=== PATIENT | male | born 1965 | race Caucasian/White ===

== ENCOUNTER 2020-06-21 17:17 | Outpatient (CLI) | payer BC, SELFPAY ==
[2020-06-21 17:44] LABS: Hematocrit 42.7 % (40.0-54.0); Hemoglobin 14.4 g/dL (14.0-18.0); Mean Corpuscular HGB Conc 33.7 g/dL (32.0-36.0); Mean Corpuscular Hemoglobin 29.2 pg (27.0-31.0); Mean Corpuscular Volume 86.6 fL (78.0-102.0); Mean Platelet Volume 10.1 fl (8.7-11.0); Platelet Count Result 242 K/mm3 (150-420); Red Blood Count 4.93 M/mm3 (4.70-6.10); Red Cell Distribution Width 12.5 % (11.6-14.4); White Blood Count 12.5 K/mm3 (4.8-10.8)
[2020-06-21 18:37] LABS: Alanine Aminotransferase 21 U/L (16-63); Albumin Level 4.5 g/dL (3.4-5.0); Alkaline Phosphatase 136 U/L (46-116); Anion Gap 9 mmol/L (8-16); Aspartate Amino Transferase 11 U/L (15-37); Bilirubin,Total 0.9 mg/dL (0.00-1.00); Blood Urea Nitrogen 7 mg/dL (7-18); Calcium 8.8 mg/dL (8.5-10.1); Carbon Dioxide 26 mmol/L (21-32); Chloride 101 mmol/L (98-108); Cholesterol 109 mg/dL (0-200); Estimated Glomerular Filt Rate > 60; Glucose 102 mg/dL (70-99); HDL Direct 27 mg/dL (40-60); LDL Cholesterol Calculated 70 mg/dL (<130); Osmolality Calculated 280 mOsm/kg (285-295); Potassium 4.4 mmol/L (3.5-5.1); Sodium 136 mmol/L (136-145); Total Protein 7.2 g/dL (6.4-8.2); Triglycerides 58 mg/dL (0-150)
[2020-06-26 08:33] LABS: Hemoglobin A1C 6.8 % (<5.7)
== END 2020-06-21 17:18 | disposition home or self-care (01) ==
LOC: CHSLAB 17:20
PROVIDERS: PCP Family Medicine; Visit Provider Family Medicine
DX: E11.9 Type 2 diabetes mellitus without complications (principal)
CPT/HCPCS: 36415; 80053; 80061; 83036; 85027

== ENCOUNTER 2022-08-06 08:11 | Outpatient (CLI) | payer OTHER, SELFPAY ==
[2022-08-06 08:38] LABS: Creatinine Urine 55.32 mg/dL (40-278); Hemoglobin A1C 9.3 % (<5.7); MALB Creatinine Ratio 23.4 mg/g (0-30); Microalbumin Urine Random < 13.0 mg/L
[2022-08-06 09:05] LABS: Alanine Aminotransferase 26 U/L (16-63); Albumin Level 4.1 g/dL (3.4-5.0); Alkaline Phosphatase 131 U/L (46-116); Anion Gap 7 mmol/L (8-16); Aspartate Amino Transferase 12 U/L (15-37); Bilirubin,Total 0.4 mg/dL (0.00-1.00); Blood Urea Nitrogen 19 mg/dL (7-18); Calcium 8.6 mg/dL (8.5-10.1); Carbon Dioxide 27 mmol/L (21-32); Chloride 101 mmol/L (98-108); Cholesterol 134 mg/dL (0-200); Estimated Glomerular Filt Rate > 60; Glucose 305 mg/dL (70-99); HDL Direct 31 mg/dL (40-60); LDL Cholesterol Calculated 53 mg/dL (<130); Osmolality Calculated 293 mOsm/kg (285-295); Potassium 4.4 mmol/L (3.5-5.1); Sodium 135 mmol/L (136-145); Total Protein 6.8 g/dL (6.4-8.2); Triglycerides 249 mg/dL (0-150)
== END 2022-08-06 08:12 | disposition home or self-care (01) ==
LOC: CHSLAB 08:12
PROVIDERS: PCP Family Medicine; Visit Provider Family Medicine
DX: E11.9 Type 2 diabetes mellitus without complications (principal)
CPT/HCPCS: 36415; 80053; 80061; 82043; 83036

== ENCOUNTER 2023-07-10 11:06 | Outpatient (CLI) | payer OTHER, SELFPAY ==
--- NOTE | 2023-07-10 11:32 | ECG_ITS ---
Measurements Intervals [place] Rate: 70 P: -74 GA: 126 QRS: 267 QRSD: 118 T: -27 QT: 406 QTc: 439 Interpretive Statements ATRIAL SENSED ELECTRONIC VENTRICULAR PACEMAKER ATYPICAL ECG NO PREVIOUS ECG AVAILABLE FOR COMPARISON Electronically Signed On 07-10-2023 14:06:20 CDT by Minh Palomares M.D.
[2023-07-10 12:28] LABS: Anion Gap 10 mmol/L (8-16); Blood Urea Nitrogen 18 mg/dL (9-20); Carbon Dioxide 27 mmol/L (22-30); Chloride 96 mmol/L (98-107); Estimated Glomerular Filt Rate > 60; Glucose 223 mg/dL (65-110); Potassium 4.6 mmol/L (3.4-5.0); Sodium 133 mmol/L (137-145)
== END 2023-07-10 11:07 | disposition home or self-care (01) ==
LOC: ANHSURGERY 11:11
PROVIDERS: Anesthesiology; PCP Family Medicine; Visit Provider Plastic Surgery
DX: Z01.818 Encounter for other preprocedural examination (principal); E11.9 Type 2 diabetes mellitus without complications; Z72.0 Tobacco use; R94.31 Abnormal electrocardiogram [ECG] [EKG]
CPT/HCPCS: 36415; 80048; 93005

== ENCOUNTER 2023-07-30 00:47 | Day surgery (SDC) | payer OTHER, SELFPAY ==
[2023-07-08 10:58] VITALS: BMI 26.9
--- NOTE | 2023-07-08 12:16 | PC.NURSE ---
Report to the Outpatient Waiting Room, entrance under the green pavilion located off [facility], at 0800 on 07-15-23. Planned Procedure Time: 1000. Time changes happen often and if your time is changed the preop area will call you the afternoon before. - You and your visitor will be asked to self-screen and do not enter if you have any COVID symptoms. - A mask is optional within the hospital at this time. Patients may have clear liquids (water, carbonated beverages, clear teas, apple juice) until 3 hours prior to surgery with a maximum of 20 ounces. No coffee or dairy products please 0700 - No food from midnight until time of surgery - Infants may have breast milk until 4 hours before surgery, infant formula 6 hours prior to surgery. - Children will be allowed to drink immediately following surgery. If applicable, please bring a bottle or sippy cup to assist with drinking. Juice, water, soda, and popsicles are readily available. For infants on formula, please bring formula the day of surgery. Pacifiers are allowed. Take the following medications with a SIP of water the morning of surgery: metoprolol; cyclobenzaprine if needed DO NOT STOP ANY OF YOUR OTHER PRESCRIPTION MEDICATIONS PRIOR TO SURGERY ?EXCEPT THE FOLLOWING Medications to discontinue per physician: Eliquis Date to take last dose: 07-12-23 (2 days prior to surgery stop per order on chart) Please no make-up, nail pashto, hairspray, perfume, deodorant, or body powder the day of surgery. No jewelry (including any body piercings) or valuables the day of surgery, leave them at home. Please take a shower or bath the night before, or the morning of, surgery with an antibacterial soap. Wear comfortable, loose fitting clothing. Children are encouraged to wear pajamas. - Jewelry must be removed prior to entering the operating room. Rings and piercings that are not removed may be cut off. - The hospital will not accept responsibility for valuables. - Please leave all valuables, including medications, at home the day of surgery. If you are going home after surgery, a licensed power truck driver must drive you home. - NO public transportation without another adult if you receive anesthesia. - We recommend that an adult stay with you for 24 hours following discharge. - We also recommend that you do not drive, make important decision, drink alcoholic beverages, or take any drugs that were not prescribed by your health care provider for at least 24 hours after your discharge time. For Pediatric surgeries, we recommend two adults accompany the child home. Follow any additional instructions given to you from your surgeon. If you or anyone in your household have experienced Covid symptoms in the past week, please notify your surgeon or the nurse liaison at the phone number below for possible testing. Telephone instructions given to Biran Reddy and asked if any additional questions and then verbalized understanding. Patient advised to call surgeon office or pre surgery nurse liaison [phone] if any additional questions.
--- NOTE | 2023-07-23 12:48 | PC.NURSE ---
Addendum entered by Hailee Navarro RN 07/23/23 12:54: PT INSTRUCTED TO TAKE METOPROLOL AM OF SUGERY AND CYCLOBENZEPRINE IF NEEDED. STOP ELIQUIS TO BE STOPPED FOR 48 HRS PRIOR TO DAY OF SURGERY. Original Note: Report to the Outpatient Waiting Room, entrance under the green pavilion located off [facility], at time _0600_ on date _07/30/23__. Planned Procedure Time: 0730. Time changes happen often and if your time is changed the preop area will call you the afternoon before. - You and your visitor will be asked to self-screen and do not enter if you have any COVID symptoms. - A mask is optional within the hospital at this time. Patients may have clear liquids (water, carbonated beverages, clear teas, apple juice) until 3 hours prior to surgery with a maximum of 20 ounces. - No food from midnight until time of surgery - Infants may have breast milk until 4 hours before surgery, infant formula 6 hours prior to surgery. - Children will be allowed to drink immediately following surgery. If applicable, please bring a bottle or sippy cup to assist with drinking. Juice, water, soda, and popsicles are readily available. For infants on formula, please bring formula the day of surgery. Pacifiers are allowed. Take the following medications with a SIP of water the morning of surgery: DO NOT STOP ANY OF YOUR OTHER PRESCRIPTION MEDICATIONS PRIOR TO SURGERY ?EXCEPT THE FOLLOWING Medications to discontinue per physician Date to take last dose Please no make-up, nail faroese, hairspray, perfume, deodorant, or body powder the day of surgery. No jewelry (including any body piercings) or valuables the day of surgery, leave them at home. Please take a shower or bath the night before, or the morning of, surgery with an antibacterial soap. Wear comfortable, loose fitting clothing. Children are encouraged to wear pajamas. - Jewelry must be removed prior to entering the operating room. Rings and piercings that are not removed may be cut off. - The hospital will not accept responsibility for valuables. - Please leave all valuables, including medications, at home the day of surgery. If you are going home after surgery, a licensed six horse hitch driver must drive you home. - NO public transportation without another adult if you receive anesthesia. - We recommend that an adult stay with you for 24 hours following discharge. - We also recommend that you do not drive, make important decision, drink alcoholic beverages, or take any drugs that were not prescribed by your health care provider for at least 24 hours after your discharge time. For Pediatric surgeries, we recommend two adults accompany the child home. Follow any additional instructions given to you from your surgeon. If you or anyone in your household have experienced Covid symptoms in the past week, please notify your surgeon or the nurse liaison at the phone number below for possible testing. Telephone instructions given to __PATIENT and asked if any additional questions and then verbalized understanding. Patient advised to call surgeon office or pre surgery nurse liaison [phone] if any additional questions.
--- NOTE | 2023-07-23 12:53 | PC.NURSE ---
1250 PT DENIES ANY CHANGE IN HEALTH OR MEDICATIONS FROM PREVIOUS INTERVIEW. NEW INSTRUCTIONS GIVEN, PT DENIES ANY QUESTIONS.
[2023-07-30] VITALS (9 sets, daily range): BP systolic 129–159; BP diastolic 77–100; PULSE 62–88; RESP 11–18; TEMP 36.2; O2SAT 97–100; BMI 26.5
--- NOTE | 2023-07-30 07:16 | WPDHPUPDATE1 ---
History and Physical Update Update Date/Time: 07/30/23 07:16 History and Physical has been reviewed, including an updated exam of the patient. There are NO changes in the patient's condition. Risks, benefits, and alternatives have been discussed and questions answered. Patient agrees to proceed with procedure.
--- NOTE | 2023-07-30 07:17 | WPDHPUPDATE1 ---
History and Physical Update Update Date/Time: 07/30/23 07:17 History and Physical has been reviewed, including an updated exam of the patient. There are NO changes in the patient's condition. Risks, benefits, and alternatives have been discussed and questions answered. Patient agrees to proceed with procedure.
[2023-07-30] MEDS: LACTATED RINGERS 1,000 ML 30 ML IV CONT ×2 (07:30→12:33)
[2023-07-30 07:47] LABS: Glucose Point of Care 247 mg/dl (65-105)
--- NOTE | 2023-07-30 07:58 | WPDANESEPPF ---
Anes - Initial Pre Proc Eval Procedure: Operation Date: 07/30/23 09:00 Proposed Procedures p Left Partial Palmar Fasciectomy - Baudilio Danielle MD Date/Time: 07/30/23 07:58 Surgeon: Baudilio Danielle MD Pre Op Diagnosis: dupuytren's contracture L hand Patient Data Age: 58 Gender: M Height: 1.88 m Weight: 95.25 kg Allergies Allergy/AdvReac Type Severity Reaction Status Date / Time No Known Allergies Allergy Verified 07/30/23 07:56 Home Medications Medication Instructions Recorded Confirmed Type metoprolol succinate 50 mg See Rx Instructions .Route 09/16/22 07/30/23 Rx tablet,extended release 24 hr .COMPLEX #90 tabs apixaban 5 mg tablet 5 mg PO BID #180 tabs 02/10/23 07/30/23 Rx atorvastatin 40 mg tablet See Rx Instructions .Route 02/10/23 07/08/23 Rx .COMPLEX #90 tabs furosemide 40 mg tablet 40 mg PO QAM #90 tabs 02/10/23 07/08/23 Rx dapagliflozin propanediol 10 mg See Rx Instructions .Route 02/20/23 07/08/23 Rx tablet (Farxiga) .COMPLEX #90 tabs cyclobenzaprine 10 mg tablet See Rx Instructions .Route 05/04/23 07/08/23 Rx .COMPLEX #45 tabs metformin 500 mg tablet,extended See Rx Instructions .Route 06/22/23 07/08/23 Rx release 24 hr .COMPLEX #90 tabs dulaglutide 3 mg/0.5 mL 3 mg subcut WEEKLY 07/08/23 07/08/23 History subcutaneous pen injector (Trulicity) spironolactone 25 mg tablet 12.5 mg PO DAILY 07/08/23 07/08/23 History lisinopril 20 mg tablet See Rx Instructions .Route 07/21/23 Rx .COMPLEX #90 tabs Laboratory Tests 07/30/23 07:45 POC Capillary Glucose 247 H mg/dl (65-105) Patient hx anesthesia problems: none Family hx anesthesia problems: none Results Review: All pre-operative results and documents have been reviewed as part of the pre-operative evaluation. [facility] Past Medical History Medical History Hypertension Pacemaker Tobacco abuse Type 2 diabetes mellitus Surgical History Surgical History History of adenoidectomy History of cholecystectomy 2017 Hx of tonsillectomy Family History Family History Father Family history unknown Mother Family history unknown Social History Social History Smoking packs per day: 3 Smoking cigarettes per day: 60.0 Years smoked: 30 Smoking pack-years: 90.00 Smoking status: Former smoker Tobacco type: cigarettes Second hand tobacco smoke exposure: No Smoking end date: 12/27/20 Alcohol intake: current Drinks per week: 2 Substance use: never Substance use type: does not use Living arrangements: with family Occupation/Education: occupation 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 Informed Consent: The patient's anesthetic plan and its attendant risks and benefits were discussed with the patient/family/POA. Questions were solicited and answers provided to the satisfaction of the patient/family/POA.
[2023-07-30] MEDS: LIDO 1%/EPINEPHRINE 1:100,000 20 ML VIAL 10 ML INFILTRATE (10:59)
[2023-07-30 12:43] LABS: Glucose Point of Care 206 mg/dl (65-105)
[2023-07-30] MEDS: fentaNYL CITRATE INJ (*CRX) 100 MCG/2 ML VIAL 25 MCG IV PUSH ×2 (13:01→13:08)
--- NOTE | 2023-07-30 13:27 | P.OP_ITS ---
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 He was taken to the operating room where he was placed supine on the operating table. The patient was given general endotracheal anesthesia. The left upper extremity was prepped and draped in usual fashion. A time-out was held and confirmed. The extremity was carefully examined for placement of access incisions. This area was infiltrated with 1% lidocaine with epinephrine, approximately 5 milliliter. The extremity was exsanguinated and the tourniquet inflated to 250 mmHg. The hand was placed in the lead hand support. A transverse palmar incision was made to release the pretendinous cords in the palm over 3rd 4th and 5th rays. Cords were dissected away from the neurovascular bundles and lysed and removed in the proximal palm. Volar midline incision was made in the small finger and skin flaps carefully elevated. The neurovascular bundles from the palm were identified in the finger and the cord material which was quite dense in the pretendinous and lateral bands were taken out. There was a spiral cord on the ulnar aspect. All that was removed and the finger could be extended to approximately 15?. A capsulotomy was not done. The wounds were closed with use of 2 Z-plasties 1 at the metacarpophalangeal joint, 1 at the proximal interphalangeal joint. 4-0 nylon was used. An absorptive bandage was applied along with the digital Alumafoam splint to the 5th finger. The patient was discharged from the operating room stable condition. He has a prescription for hydrocodone 5/325 6.. Estimated Blood Loss -2.0 Tourniquet Time 72 Drains No Packing No Pathology None sent Complications No immediate complications Condition Stable Disposition PACU
[2023-07-30] MEDS: oxyCODONE HCL (*CRX) 5 MG TAB IR PO (13:50)
== END 2023-07-30 14:28 | disposition home or self-care (01) ==
PROVIDERS: PCP Family Medicine; Visit Provider Plastic Surgery
PROC: (CPT 26045; principal; 2023-07-30 09:00)
DX: M72.0 Palmar fascial fibromatosis [Dupuytren] (principal); I10 Essential (primary) hypertension; E11.9 Type 2 diabetes mellitus without complications; Z79.01 Long term (current) use of anticoagulants; Z79.84 Long term (current) use of oral hypoglycemic drugs; Z79.85 Long-term (current) use of injectable non-insulin antidiabetic drugs; Z87.891 Personal history of nicotine dependence; Z95.0 Presence of cardiac pacemaker
CPT/HCPCS: 26123; 82948; A9270; J2250; J2405; J2704; J3010; J7120

== ENCOUNTER 2023-08-17 10:09 | Outpatient (RCR) | payer OTHER, SELFPAY ==
--- NOTE | 2023-08-17 11:37 | OTOPEVAL1 ---
Assessment and note entered by Aneta Amaya, OT Evaluation Information Assessment Status Evaluation Diagnosis S/p L partial palmar fasciectomy Onset 07/30/23 Subjective Information The patient goes by Brian. The patient reports pain at medial side of hand and at MP of small finger, at the time of evaluation he reports 4-5/ 10 pain and stated it can get up to 10/10 if he pushes it. The patient stated his MD wants him to start moving his hand but he sometimes has a difficult time due to pain. The patient reports numbness in proximal joint of distal small finger. Reported Pain Level Pain Score 5: Self Report Assessment OT Clinical Summary The patient is a 58 year old male who was referred to outpatient OT due to s/p L partial palmar fasciectomy with the patient demonstrating increased edema, limited digit ROM, lacer and tier/pinch weakness and pain. The patient's PMH includes but is not limited to heart failure, diabetes, HTN and has had a pacemaker/defibrillator placed within the last year. The patient previously demonstrated WNL AROM, lacer and tier/pinch strength, no edema or pain. The patient now demonstrates significantly impaired lacer and tier/pinch strength, AROM of L hand small and ring fingers, moderate to severe pain and swelling that affect the patient's ability to engage in daily tasks including grasping items and maintaining hold to perform grooming, cooking and leisure activities. The patient scored a 61% on QuickDASH questionnaire at time of evaluation demonstrating moderate to severe dysfunction of L UE. The patient requires skilled OT to address these deficits and return to PLOF. Plan of Care Interventions Therapeutic Exercise,Manual Therapy,Neuro Re- education,Therapeutic Activities,Hot Pack/Cold Pack,Sensory Integrative Techn,Self-Care/Home Management,Prosthetic Training,Check Out for Orthotic/Pr OT Services Indicated Yes Treatment Frequency and 2x/week for 10 visits. Duration These treatments will address the objective and functional deficits as defined above. The patient will be advanced safely and appropriately in order for the patient to progress towards his/her prior level of function. Additional exercises will be introduced and as well as a comprehensive home exercise program upon discharge, if needed, ?to ensure carryover of functional gains achieved in the clinic. This treatment plan has been reviewed and agreement upon by the patient.
--- NOTE | 2023-09-29 15:13 | OTOPDC ---
Assessment and note entered by Aneta Amaya, OT Evaluation Information Assessment Status Progress Diagnosis S/p L partial palmar fasciectomy Onset 07/30/23 Subjective Information The patient reports that his finger is moving better than before he started therapy. He stated that he still has sometimes has pain but it is not as bad. The patient reports 3/10 pain at its worst and 0/10 pain at rest. The patient reports mild tingling in small finger but that the tingling has gotten much better. Reported Pain Level Pain Score 0: Self Report Assessment OT Clinical Summary The patient demonstrates significant progress in digit AROM, edema measurements, pain and gripping leading to increased independence with grooming and leisure tasks. The patient did not make progress in signal apprentice strength due to continued discomfort during gripping activities, the patient has been educated on UE HEP to address ROM and signal apprentice strength. The patient scored a 52% on QuickDASH questionnaire at the time of discharge as compared to 61% at the time of evaluation demonstrating minimal functional improvements with L UE. The patient is discharged this date due to meeting goals and with UE HEP in order to maintain progress. Plan of Care OT Services Indicated No
== END 2023-09-29 16:50 | disposition home or self-care (01) ==
LOC: CHSOT 10:09
PROVIDERS: PCP Family Medicine; Visit Provider Plastic Surgery
DX: Z48.89 Encounter for other specified surgical aftercare (principal); M25.642 Stiffness of left hand, not elsewhere classified; M79.89 Other specified soft tissue disorders
CPT/HCPCS: 97110; 97140; 97166; 97530

== ENCOUNTER 2024-11-11 09:35 | Outpatient (CLI) | payer MEDICARE, SELFPAY ==
--- OUTSIDE RECORDS SUMMARY | 2024-11-11 09:39 | XMS_ITS | Clinical Summary ---
Author Organization [facility] Address [address] [place] [address] Care Team Providers Care Building Construction Inspector Name Role Phone Ghulam Leary Primary Care Provider [phone] Kiet Andrade MD Unavailable [phone] Yaneth Venegas MD Unavailable Kaylynn Rodas PA-C Unavailable [phone] Allergies No known active allergies Medications atorvastatin 40 MG tablet 2 Active furosemide 40 MG tablet 2 Active lisinopril 20 MG tablet 2 Active metoprolol succinate ER 50 MG 24 hr tablet 2 Active FARXIGA 10 MG Tab 2 Active TRULICITY 0.75 MG/0.5ML injection 2 Active ELIQUIS 5 MG tabletIndication s:Paroxysmal atrial fibrillation ([facility]) TAKE 1 TABLET (5 MG TOTAL) BY MOUTH 2 (TWO) TIMES DAILY. D/C'D RX 08-22-22 180 tablet 3 2 Active spironolactone (ALDACTONE) 25 MG tablet TAKE 1/2 TABLET BY MOUTH DAILY. 45 tablet 3 5 Active spironolactone (ALDACTONE) 25 MG tablet TAKE 1/2 TABLET BY MOUTH DAILY. 45 tablet 3 4 025 Discontinued Active Problems Problem Noted Date Diagnosed Date PAF (paroxysmal atrial fibrillation) ([facility] S/HCC) 11/09/2024 CHF (congestive heart failure) ([facility]) 11/09/2024 Presence of cardioverter defibrillator 4 V-tach ([facility]/HCC [facility]) 10/29/2023 Encounters Date Type Department Care Team Description 11/09/2024 12:45 PM X RAY ELECTRONICS WIREMAN Allied Health/Nurse Visit [facility] [id number] [place] [address] Kiet Andrade MD In Clinic Device Check 11/09/2024 12:45 PM X RAY ELECTRONICS WIREMAN Office Visit [facility] [address] [place] [address] Kiet Andrade MD Follow Up 11/09/2024 12:30 PM X RAY ELECTRONICS WIREMAN - 11/09/2024 11:59 PM X RAY ELECTRONICS WIREMAN Hospital Encounter [facility] [address] [place] [address] Kiet Andrade MD Arrived Discharge Disposition: Home or Self Care (Routine Discharge) 11/09/2024 Travel 11/03/2024 Orders Only [facility] [address] [place] [address] Kiet Andrade MD 09/20/2024 Telephone [facility] [address] [place] [address] Kiet Andrade MD Reschedule 09/19/2024 3:15 AM X RAY ELECTRONICS WIREMAN Allied Health/Nurse Visit [facility] [address] [place] [address] Kiet Andrade MD 09/05/2024 11:00 AM X RAY ELECTRONICS WIREMAN Office Visit [facility] [address] [place] [address] Yaneth Venegas MD Heart Problem 09/05/2024 10:45 AM X RAY ELECTRONICS WIREMAN - 09/05/2024 11:59 PM X RAY ELECTRONICS WIREMAN Hospital Encounter [facility] [address] [place] [address] Yaneth Venegas MD Discharge Disposition: Home or Self Care (Routine Discharge) 09/05/2024 Travel 09/02/2024 Orders Only [facility] [address] [place] [address] Yaneth Venegas MD 09/01/2024 1:56 PM X RAY ELECTRONICS WIREMAN - 09/01/2024 11:59 PM X RAY ELECTRONICS WIREMAN Hospital Encounter [facility] [address] [place] [address] Yaneth Venegas MD Discharge Disposition: Home or Self Care (Routine Discharge) 09/01/2024 Travel 08/18/2024 Telephone [facility] [address] [place] [address] Yaneth Venegas MD Reschedule from Last 3 Months Social History Tobacco Use Types Packs/Day Years Used Date Smoking Tobacco: Every Day Cigarettes 1 40 Smokeless Tobacco: Never Sex and Gender Information Value Date Recorded Sex Assigned at Male 11/09/2024 12:24 PM X RAY ELECTRON[employer] WIREMAN Legal Sex Male 5:46 PM X RAY ELECTRON[employer] WIREMAN Gender Identity Not on file Sexual Orientation Not on file 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 Not on file Not on file Last Filed Vital Signs Vital Sign Reading Time Taken Comments Blood Pressure 110/75 11/09/2024 12:51 PM X RAY ELECTRON[employer] WIREMAN Pulse 74 11/09/2024 12:51 PM X RAY ELECTRON[employer] WIREMAN Temperature 35.6 C (96 F) 08/14/2022 10:18 PM X RAY ELECTRON[employer] WIREMAN Respiratory Rate 18 11/09/2024 12:51 PM X RAY ELECTRON[employer] WIREMAN Oxygen Saturation 100% 11/09/2024 12:51 PM X RAY ELECTRONICS WIREMAN Inhaled Oxygen Concentration - - Weight 86.9 kg (191 lb 9.6 oz) 11/09/2024 12:51 PM X RAY ELECTRON[employer] WIREMAN Height 188 cm (6' 2 ) 11/09/2024 12:51 PM X RAY ELECTRONICS WIREMAN Body Mass Index 24.6 11/09/2024 12:51 PM X RAY ELECTRONICS WIREMAN Plan of Treatment Upcoming Encounters Date Type Department Care Team (Late st Contact Info) Description 02/23/2025 3:15 AM CDT Allied Health/Nurse Visit [facility] [address] [place] [address] Kiet Andrade MD [address] [place] [address] 09/18/2025 8:45 AM X RAY ELECTRON[employer] WIREMAN Office Visit [facility] [address] [place] [address] Yaneth Venegas MD [address] [place] [address] 11/22/2025 10:15 AM X RAY ELECTRONICS WIREMAN Allied Health/Nurse Visit [facility] [address] [place] [address] Kiet Andrade MD [address] [place] [address] 11/22/2025 10:30 AM X RAY ELECTRONICS WIREMAN Office Visit [facility] [address] [place] [address] Kaylynn Rodas PA-C [address] [place] [address] Health Maintenance Due Date Last Done Comments ASCVD Statin 1965 Colorectal Cancer Screening Colonoscopy (10 Years) 1965 Kidney Health Evaluation 1965 Annual Physical 1968 Pneumococcal Vaccine: Pediatrics (0 to 5 Years) and At-Risk Patients (6 to 64 Years) (1 of 2 - PCV) 1971 Diabetes: Retinopathy Eye Exam 1983 Hepatitis C 1983 DTaP, Tdap and Td Vaccines ( 1 - Tdap) 1984 Lung Cancer Screening 2015 Zoster Vaccines (1 of 2) 2015 Hemoglobin A1C 07/19/2022 01/17/2022 ASCVD LDL 01/20/2024 01/19/2023 Lipid Panel 01/20/2024 01/19/2023, 01/17/2022 COVID-19 Vaccine (1 - 2023-2 5 season) 2024 Influenza Adult (#1) 2024 Meningococcal B Vaccine Aged Out No l onger eligible based on patient's age to complete this topic Meningococcal Vaccine Aged Out No jacqueline lizett eligible based on patient's age to complete this topic RSV Immunizations Under 20 Months Aged Out No longer eligible b ased on patient's age to complete this topic Medical Devices Implanted Type Area Customer Sales Distributor Device Identifier Shelf Expiration Date Model / Serial / Lot Medtronic Edmonson Quad Bi-V-01/22/2022 Implanted:12/28 (Quantity not on file) ICD [employer] [id number] / [id number] / Medtronic Ra-01/22/2022 Implanted:12/28 (Quantity not on file) Lead Implant [employer] [id number] / [id number] / Medtronic Rv-01/22/2022 Implanted:12/28 (Quantity not on file) Lead Implant [employer] [id number] / [id number] / Procedures Procedure Name Priority Date/Time Associated Diagnosis Comments ECG 12-LEAD Routine 11/09/2024 12:36 PM X RAY ELECTRONICS WIREMAN Paroxysmal atrial fibrillation ([facility] HHS/HCC) CHF (congestive heart failure) ([facility] HHS/HCC) Presence of cardioverter defibrillator ECG 12-LEAD Routine 09/05/2024 11:00 AM X RAY ELECTRONICS WIREMAN V-tach ([facility]/HCC HHS/HCC) USE ECHOCARDIOGRAM Routine 09/01/2024 2: 39 PM X RAY ELECTRONICS WIREMAN Other cardiomyopathy ([facility]/HCC HHS/HCC) LIPID PANEL Routine 01/19/2023 12:05 PM CDT Coronary artery disease involving hopland coronary artery of hopland heart without angina pectoris Paroxysmal atrial fibrillation ([facility]/HCC HHS/HCC) from Last 3 Months or Most Recently Relevant to Health Maintenance Results * ECG 12 lead (HOSPITAL PERFORMED ONLY) (11/09/2024 12:36 PM X RAY ELECTRONICS WIREMAN) Only the most recent of2 resultswithin the time period is included. 11/09/2024 12:3 6 PM X RAY ELECTRONICS WIREMAN Narrative [facility] - 11/10/2024 5:21 AM X RAY ELECTRONICS WIREMAN [address] 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 Technician: : 1965 Requested By: KIET ANDRADE Order Number: [id number] Reading MD: Kiet Andrade Measurements Intervals [place] Rate: 62 P: 63 MT: 224 QRS: 263 QRSD: 118 T: -33 QT: 421 QTc: 429 Interpretive Statements ELECTRONIC VENTRICULAR PACEMAKER SINUS RHYTHM ABNORMAL RHYTHM ECG X RAY ELECTRONICS WIREMAN us Kiet Andrade MD ECG ORDERABLES Final Res ult [facility] * USE ECHOCARDIOGRAM (09/01/2024 2:39 PM X RAY ELECTRONICS WIREMAN) Anatomical Region Laterality Modality Cardiac Ultrasound 09/01/2024 2:03 PM X RAY ELECTRONICS WIREMAN Narrative 09/03/2024 10:14 PM X RAY ELECTRONICS WIREMAN Echocardiography Report Pat.Name: Emilio Lim Pat.ID: [id number] St.Date: 09/01/2024 Refer.MD: Tye, [facility] Exam Time: 2:03:00 PM Study Type:OUTREACH Height: 72 in Weight: 200 lb BSA: 2.13 m2 Age: 9 1965,59Y Sex: M Sonogrphr: Harjinder Pat. Stat.:Outpatient CPT - 4: 78350 Reason for Study:Other cardiomyopathy Procedures: Study performed at [place], [place] and interpreted by [facility]. 2D, M-mode, Doppler, Color Flow ++++++++++++++++++++++++++++++++++++ SUMMARY: ++++++++++++++++++++++++++++++++++++ The left ventricular size is normal. Estimated left ventricular ejection fraction is 30-35%. The right ventricular size is normal. Right ventricular systolic function is depressed. Right ventricular systolic pressure is 28 mmHg. A pacemaker wire is visualized in the right ventricle. Inferior vena cava shows >50% collapse with respiration consistent with normal right atrial pressure. There is trace tricuspid regurgitation. ++++++++++++++++++++++++++++++++++++ FINDINGS: ++++++++++++++++++++++++++++++++++++ LV: The left ventricular size is normal. Estimated left ventricular ejection fraction is 30-35%. There is no left ventricular hypertrophy. Left ventricular diastolic function is abnormal. RV: The right ventricular size is normal. Right ventricular systolic function is depressed. Right ventricular systolic pressure is 28 mmHg. A pacemaker wire is visualized in the right ventricle. LA: Left atrial size is normal. RA: Right atrial size is normal. A pacemaker wire is visualized in the right atrium. MIGNON: No evidence of pericardial effusion. AO: Aorta is normal. PA: Estimated right atrial pressure of 3 mmHg. SVn: Inferior vena cava is normal. Inferior vena cava shows >50% collapse with respiration consistent with normal right atrial pressure. AV: The aortic valve is trileaflet. There is no aortic stenosis. There is no evidence of aortic regurgitation. MV: Trace mitral regurgitation. Mild calcification of mitral valve leaflets. PV: Trace pulmonic regurgitation. Pulmonic valve not well visualized. TV: The tricuspid valve appears structurally normal. There is trace tricuspid regurgitation. <Electronic Signature> 09/03/2024 10:14 PM Yaneth Venegas M.D. Procedure Note Yaneth Venegas MD - 09/03/2024 Echocardiography Report Pat.Name: Emilio Lim Pat.ID: [id number] .Date: 09/01/2024 Refer.MD: Tey, [facility] Exam Time: 2:03:00 PM Study Type:OUTREACH Height: 72 in Weight: 200 lb BSA: 2.13 m2 Age: 9 1965,59Y Sex: M Sonogrphr: Harjinder Pat. Stat.:Outpatient CPT - 4: 90086 Reason for Study:Other cardiomyopathy Procedures: Study performed at [place], [place] and interpreted by [facility]. 2D, M-mode, Doppler, Color Flow ++++++++++++++++++++++++++++++++++++ SUMMARY: ++++++++++++++++++++++++++++++++++++ The left ventricular size is normal. Estimated left ventricular ejection fraction is 30-35%. The right ventricular size is normal. Right ventricular systolic function is depressed. Right ventricular systolic pressure is 28 mmHg. A pacemaker wire is visualized in the right ventricle. Inferior vena cava shows >50% collapse with respiration consistent with normal right atrial pressure. There is trace tricuspid regurgitation. ++++++++++++++++++++++++++++++++++++ FINDINGS: ++++++++++++++++++++++++++++++++++++ LV: The left ventricular size is normal. Estimated left ventricular ejection fraction is 30-35%. There is no left ventricular hypertrophy. Left ventricular diastolic function is abnormal. RV: The right ventricular size is normal. Right ventricular systolic function is depressed. Right ventricular systolic pressure is 28 mmHg. A pacemaker wire is visualized in the right ventricle. LA: Left atrial size is normal. RA: Right atrial size is normal. A pacemaker wire is visualized in the right atrium. MIGNON: No evidence of pericardial effusion. AO: Aorta is normal. PA: Estimated right atrial pressure of 3 mmHg. SVn: Inferior vena cava is normal. Inferior vena cava shows >50% collapse with respiration consistent with normal right atrial pressure. AV: The aortic valve is trileaflet. There is no aortic stenosis. There is no evidence of aortic regurgitation. MV: Trace mitral regurgitation. Mild calcification of mitral valve leaflets. PV: Trace pulmonic regurgitation. Pulmonic valve not well visualized. TV: The tricuspid valve appears structurally normal. There is trace tricuspid regurgitation. <Electronic Signature> 09/03/2024 10:14 PM Yaneth Venegas M.D. Yaneth Venegas MD ECHO Final Result * (ABNORMAL) LIPID PANEL (01/19/2023 12:05 PM CDT) [facility] Signature CHOLESTEROL 106 <200 MG/DL 01/19/2023 12:45 PM CDT [facility] Comment: THE NATIONAL LIPID ASSOCIATION AND THE NATIONAL CHOLESTEROL EDUCATION PROGRAM (NCEP) HAVE SET THE FOLLOWING GUIDELINES FOR TOTAL CHOLESTEROL IN ADULTS AGES 18 AND UP. DESIRABLE: <200 BORDERLINE HIGH: 200-239 HIGH: > OR = 240 TRIGLYCERIDES 81 <150 MG/DL 01/19/2023 12:45 PM CDT [facility] Comment: THE NATIONAL LIPID ASSOCIATION AND THE NATIONAL CHOLESTEROL EDUCATION PROGAM (NCEP) HAVE SET THE FOLLOWING GUIDELINES FOR TRIGLYCERIDES IN ADULTS AGES 18 AND UP. NORMAL: <150 BORDERLINE HIGH: 150 TO 199 HIGH: 200 TO 499 VERY HIGH: >499 HDL 38(L) >39 MG/DL 01/19/2023 12:45 PM CDT [facility] Comment: THE NATIONAL LIPID ASSOCIATION AND THE NATIONAL CHOLESTEROL EDUCATION PROGAM (NCEP) HAVE SET THE FOLLOWING GUIDELINES FOR HDL CHOLESTEROL IN ADULTS AGES 18 AND UP. MALES: >39 FEMALES: >49 LDL-C 52 <100 MG/DL 01/19/2023 12:45 PM CDT [facility] Comment: THE NATIONAL LIPID ASSOCIATION AND THE NATIONAL CHOLESTEROL EDUCATION PROGAM (NCEP) HAVE SET THE FOLLOWING GUIDELINES FOR LDL CHOLESTEROL IN ADULTS AGES 18 AND UP. DESIRABLE: <100 ABOVE DESIRABLE: 100 TO 129 BORDERLINE HIGH: 130 TO 159 HIGH: 160 TO 189 VERY HIGH: >189 VLDL CALCULATION 16 MG/DL 01/20/20 12:45 PM CDT [facility] Comment:REFERENCE RANGE NOT ESTABLISHED CHOL/HDL RATIO 2.8 01/19/2023 12:45 PM CDT [facility] Comment:REFERENCE RANGE NOT ESTABLISHED LDL/HDL 1.4 01/19/2023 12:45 PM CDT [facility] Comment:REFERENCE RANGE NOT ESTABLISHED NON HDL CHOLESTEROL 68 MG/DL 01/19/2023 12:45 PM CDT [facility] Comment:REFERENCE RANGE NOT ESTABLISHED 01/19/2023 12:0 5 PM CDT us Yaneth Venegas MD LABORATORY Final Result [facility] [address] [place] [address], from Last 3 Months or Most Recently Relevant to Health Maintenance Insurance MEDICAID MEDICARE Care Teams Building Construction Inspector Relationship Specialty Start Date End Date Ghulam Leary DO [address] [place] [address] PCP - General FAMILY PRACTICE 02/20/22 Kiet Andrade MD [address] [place] [address] Consulting Physician CLINICAL CARDIAC ELECTROPHYSIOLOGY 07/31/22 Yaneth Venegas MD [address] [place] [address] Consulting Physician CARDIOVASCULAR DISEASE 07/29/22 Kaylynn Rodas PA-C [address] [place], [place] [address] Referring Physician PHYSICIAN PICKER TENDER 11/04/24
--- OUTSIDE RECORDS SUMMARY | 2024-11-11 09:40 | XMS_ITS | Encounter Summary ---
Author Organization [facility] Address [address] [place] [address] Care Team Providers Care Medical Practice Manager Name Role Phone Ghulam Leary DO Primary Care Provider [phone] Kiet Andrade MD Unavailable [phone] Yaneth Venegas MD Unavailable Kaylynn Rodas PA-C Unavailable [phone] Encounter Details Date Type Department Care Team (Latest Contact Info) Description 11/09/2024 12:30 PM RUG CUTTER - 11/09/2024 11:59 PM RUG CUTTER Hospital Encounter [facility] [address] [place] [address] Kiet Andrade MD [address] [place] [address] Arrived Discharge Disposition: Home or Self Care (Routine Discharge) Social History Tobacco Use Types Packs/Day Years Used Date Smoking Tobacco: Every Day Cigarettes 1 40 Smokeless Tobacco: Never Sex and Gender Information Value Date Recorded Sex Assigned at Male 11/09/2024 12:24 PM RUG CUTTER Legal Sex Male 5:46 PM RUG CUTTER Gender Identity Not on file Sexual Orientation Not on file 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 D/C'D RX 08-22-22 180 tablet 3 09/15/2022 FARXIGA 10 MG Tab 07/31/2022 furosemide 40 MG tablet 02/20/2022 lisinopril 20 MG tablet 01/30/2022 metoprolol succinate ER 50 MG 24 hr tablet 01/30/2022 spironolactone (ALDACTONE) 25 MG tablet TAKE 1/2 TABLET BY MOUTH DAILY. 45 tablet 3 10/28/2024 TRULICITY 0.75 MG/0.5ML injection 07/31/2022 documented as of this encounter Plan of Treatment Upcoming Encounters Date Type Department Care Team (Late st Contact Info) Description 02/23/2025 3:15 AM CDT Allied Health/Nurse Visit [facility] [address] [place] [address] Kiet Andrade MD [address] [place] [id number] 09/18/2025 8:45 AM RUG CUTTER Office Visit [facility] [place] [address] [place] [address] Yaneth Venegas MD [address] [place] [phone] 11/22/2025 10:15 AM RUG CUTTER Allied Health/Nurse Visit [facility] [address] [place] [address] Kiet Andrade MD [address] [place] [address] 11/22/2025 10:30 AM RUG CUTTER Office Visit [facility] [address] [place] [address] Kaylynn Rodas PA-C [address] [place] [address] documented as of this encounter Procedures Procedure Name Priority Date/Time Associated Diagnosis Comments ECG 12-LEAD Routine 11/09/2024 12:36 PM RUG CUTTER Paroxysmal atrial fibrillation ([facility] HHS/HCC) CHF (congestive heart failure) ([facility] HHS/HCC) Presence of cardioverter defibrillator documented in this encounter Results * ECG 12 lead (HOSPITAL PERFORMED ONLY) (11/09/2024 12:36 PM RUG CUTTER) 11/09/2024 12:3 6 PM RUG CUTTER Narrative [facility] - 11/10/2024 5:21 AM RUG CUTTER [address] 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: : 1965 Requested By: KIET ANDRADE Order Number: [id number] Reading : Kiet Andrade Measurements Intervals [place] Rate: 62 P: 63 [place]: 224 QRS: 263 QRSD: 118 T: -33 QT: 421 QTc: 429 Interpretive Statements ELECTRONIC VENTRICULAR PACEMAKER SINUS RHYTHM ABNORMAL RHYTHM ECG CUTTER us Kiet Andrade MD ECG ORDERABLES Final Res ult [facility] documented in this encounter Visit Diagnoses Diagnosis Paroxysmal atrial fibrillation ([facility]) Atrial fibrillation CHF (congestive heart failure) ([facility]) Congestive heart failure, unspecified Presence of cardioverter defibrillator Automatic implantable cardiac defibrillator in situ documented in this encounter Care Teams Medical Practice Manager Relationship Specialty Start Date End Date Ghulam Leary DO [address] [place] [address] PCP - General FAMILY PRACTICE 02/20/22 Kiet Andrade MD [address] [place] [address] Consulting Physician CLINICAL CARDIAC ELECTROPHYSIOLOGY 07/31/22 Yaneth Venegas MD [address] [place], [place] [phone] Consulting Physician CARDIOVASCULAR DISEASE 07/29/22 Kaylynn Rodas PA-C [address] [place], [place] [address] Referring Physician PHYSICIAN HARDWARE TECHNICIAN 11/04/24 documented as of this encounter
[2024-11-11 10:52] LABS: Alanine Aminotransferase 39 U/L (16-63); Albumin Level 4.6 g/dL (3.4-5.0); Alkaline Phosphatase 148 U/L (46-116); Anion Gap 8 mmol/L (4-12); Aspartate Amino Transferase 17 U/L (15-37); Bilirubin,Total 0.7 mg/dL (0.00-1.00); Blood Urea Nitrogen 19 mg/dL (7-18); Carbon Dioxide 27 mmol/L (21-32); Chloride 98 mmol/L (98-108); Cholesterol 128 mg/dL (0-200); Estimated Glomerular Filt Rate > 60; Glucose 339 mg/dL (70-99); HDL Direct 36 mg/dL (40-60); LDL Cholesterol Calculated 44 mg/dL (<130); Osmolality Calculated 291 mOsm/kg (285-295); Potassium 5.1 mmol/L (3.5-5.1); Sodium 133 mmol/L (136-145); Total Protein 7.4 g/dL (6.4-8.2); Triglycerides 238 mg/dL (0-150)
[2024-11-11 11:23] LABS: Hemoglobin A1C > 13.7 % (<5.7)
[2024-11-11 11:39] LABS: Microalbumin Urine Random < 13.0 mg/L
[2024-11-11 12:15] LABS: Creatinine Urine < 5.00 mg/dL (40-278)
== END 2024-11-11 09:36 | disposition home or self-care (01) ==
LOC: CHSLAB 09:36
PROVIDERS: PCP Family Medicine; Visit Provider Family Medicine
DX: E11.9 Type 2 diabetes mellitus without complications (principal)
CPT/HCPCS: 36415; 80053; 80061; 82043; 83036

== ENCOUNTER 2025-09-01 02:00 | Day surgery (SDC) | payer MEDICARE, MEDICAID, SELFPAY ==
[2025-08-28 10:08] VITALS: BMI 24.9
--- NOTE | 2025-08-28 10:16 | SUR.PREOP ---
[facility] has started construction of its new state of the art ER which will open Spring 2026. With this, we anticipate parking may be a challenge for some our surgical patients and families. Parking spaces are limited but are available for all Surgical, obstetrics, and ER patients sharing this lot. If you arrive and find you are having a hard time finding a parking space, please note that we understand the challenges, please drive around the hospital and park near Hospital Entrance 1. When you enter this entrance, you can ask a volunteer to direct or take you back to the surgical waiting area to check in. We appreciate everyone?s understanding of these expected challenges while we build for your future. Report to the Outpatient Waiting Room, entrance under the green pavilion located off [address], at time 0600 on date 09/01/25. Planned Procedure Time: 0730. Time changes happen often and if your time is changed the preop area will call you the afternoon before. - You and your visitor will be asked to self-screen and do not enter if you have any COVID symptoms. Please call surgeon if you need to reschedule. - A mask is optional within the hospital at this time. Patients may have clear liquids (water, carbonated beverages, clear teas, apple juice) until 3 hours prior to surgery with a maximum of 20 ounces. - No food from midnight until time of surgery and no smoking, or chewing tobacco (or any form of nicotine). No chewing gum, candy or mints. - Infants may have breast milk until 4 hours before surgery, infant formula 6 hours prior to surgery. - Children will be allowed to drink immediately following surgery.? If applicable, please bring a bottle or sippy cup to assist with drinking. Juice, water, soda, and popsicles are readily available.? For infants on formula, please bring formula the day of surgery.? Pacifiers are allowed. Take only the following medications with a SIP of water on the morning of surgery: metoprolol DO NOT STOP ANY OF YOUR OTHER PRESCRIPTION MEDICATIONS PRIOR TO SURGERY EXCEPT THE FOLLOWING Hold all vitamins and supplements for 3 days per anesthesiologist. Medications to discontinue per physician- booker - per dr. ahn(pt stated he was told to stop today 08/28/25), lisinopril, metformin, farxiga, lasix, spironolactone - DOS Date to take last dose Please no make-up, nail eritrean, hairspray, perfume, deodorant, or body powder the day of surgery.? No jewelry (including any body piercings) or valuables the day of surgery, leave them at home.? Please take a shower or bath the night before, or the morning of, surgery with an antibacterial soap.? Wear comfortable, loose fitting clothing.? Children are encouraged to wear pajamas. - Jewelry must be removed prior to entering the operating room.? Rings and piercings that are not removed may be cut off. - The hospital will not accept responsibility for valuables.? - Please leave all valuables, including medications, at home the day of surgery. If you are going home after surgery, a licensed sprinkler driver must drive you home.? - NO public transportation without another adult if you receive anesthesia. - We recommend that an adult stay with you for 24 hours following discharge. - We also recommend that you do not drive, make important decision, drink alcoholic beverages, or take any drugs that were not prescribed by your health care provider for at least 24 hours after your discharge time. For Pediatric surgeries, we recommend two adults accompany the child home. Follow any additional instructions given to you from your surgeon. Telephone instructions given to __patient__and asked if any additional questions and then verbalized understanding. Patient advised to call surgeon office or pre surgery nurse liaison [phone] if any additional questions.
--- OUTSIDE RECORDS SUMMARY | 2025-09-01 02:11 | XMS_ITS | Encounter Summary ---
Author Organization [facility] Address [address] [place] [address] Care Team Providers Care Drying Machine Back Tender Name Role Phone Ghulam Leary DO Primary Care Provider [phone] Kiet Quiroga MD Unavailable [phone] Yaneth Venegas MD Unavailable Kaylynn Rodas PA-C Unavailable [phone] Reason for Visit * Reason Onset Date Comments Cardiac Device Management 08/30/2025 Encounter Details Date Type Department Care Team (Late st Contact Info) Description 08/30/2025 Telephone [facility] [address] [place] [address] Kiet Quiroga MD [address] 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 It should be directed to [phone]. Will fax to her at that number. RPRISE ANALYST * Román Miranda RN - 08/31/2025 9:02 AM CST Worksheet faxed to number provided. RPRISE ANALYST * Román Miranda RN - 08/30/2025 9:58 AM CST Images from the original note were not included. Perioperative Management of Pacemakers/Defibrillators Patient Name: Baudilio Reddy Jr. Date of : 1965 Surgery Specifications: Type of Surgery: small finger fasciectomy PIP joint, capsulectomy on 09/01/2025. [facility] expected? [x] Yes [] No Device Specifications: Device Type: [] Pacemaker [] Single Chamber [x] Medtronic [] Dual Chamber [] [employer] [x] ICD [x] Biventricular [] Mccrary/St Moi [] Biotronik [] Joby Device Programming: Pacing Mode: DDD Minimum pacing rate: 60 Maximum pacing rate: 130 ICD VT therapy: 150- 200 VT zone/ > 200 VF zone Effect of magnet on device: Effect on pacing function: none Effect on ICD VT therapy: Temporarily suspends tachy therapies until magnet removed Device function normal? [x] Yes [] No [] Unknown Is patient pacing-dependent? [] Yes [x] No [] Unknown EP Recommendations Pre-operative device management: [x] No action required [] Device interrogation at [facility] before surgery [] Device interrogation on the day of surgery (Call device company to schedule) [] Reprogram device before surgery as follows: [] Program pacing to asynchronous pacing mode [] Turn off ICD arrhythmia detection Intra-operative device management: [] No action required [x] Apply magnet over the device [] Cardiac monitoring [] Have defibrillator pads immediately available [] Apply defibrillator pads on patient [] Use arterial line so pulse wave and blood pressure can be monitored during short applications of electrocautery. Post-operative device management: [] No action required [x] Remove magnet [] Device interrogation before patient discharge (Call device company to schedule) [] Reprogram device to original programming settings (Call device company to schedule) Comments: Underlying rhythm is NSR Environmental Laboratory Technician: Dr. Kiet Quiroga ( Dr Schultz compression molding machine tender) Signature: ROMÁN MIRANDA RN Date: 08/30/2025 RPRISE ANALYST RPRISE ANALYST * Bea Valdez - 08/30/2025 8:50 AM CST Received a Fax from [facility]. They need a perioperative management form filled out. The patient is having a small finger fasciectomy PIP joint, capsulectomy on 09/01/2025. Please Fax the perioperative management form to ATTN: sadi Chandler RN at #[phone]. RPRISE ANALYST documented in this encounter Plan of Treatment Upcoming Encounters Date Type Department Care Team (Latest Contact Info) Description 09/27/2025 2:45 AM ENTERPRISE ANALYST Allied Health/Nurse Visit [facility] [address] [place] [address] [phone] Kiet Quiroga MD [address] [place] [address] 11/08/2025 1:00 PM ENTERPRISE ANALYST Allied Health/Nurse Visit [facility] [place] [address] [place] [phone] Kaylynn Rodas PA-C [address] [place] [address] 11/08/2025 1:00 PM ENTERPRISE ANALYST Office Visit [facility] [place] [address] [place] [address] Kaylynn Rodas PA-C [address] [place] [address] 07/02/2026 1:00 PM CDT Appointment [place] [address] [place] [address] Yaneth Venegas MD [address] [place] [address] 07/23/2026 9:00 AM CDT Office Visit [facility] [place] [address] [place] [address] Yaneth Venegas MD [address] [place] [address] documented as of this encounter Visit Diagnoses Not on filedocumented in this encounter Care Teams Drying Machine Back Tender Relationship Specialty Start Date End Date Ghulam Leary DO [address] [place] [address] PCP - General FAMILY PRACTICE 02/20/22 Kiet Quiroga MD [address] [place] [address] Consulting Physician CLINICAL CARDIAC ELECTROPHYSIOLOGY 07/31/22 Yaneth Venegas MD [address] [place] [address] Consulting Physician CARDIOVASCULAR DISEASE 07/29/22 Kaylynn Rodas PA-C [address] [place] [address] Referring Physician PHYSICIAN BUNKER WORKER 11/04/24 documented as of this encounter
--- NOTE | 2025-09-01 06:40 | PM.HPGS ---
History of Present Illness History of Present Illness Chief complaint: Dupuytrens contracture -left Narrative: Patient seen and examined in pre-operative holding area. No interval change in medical history or symptoms. Patient recalls previous discussion of benefits and alternatives to procedure. Continues to desire to proceed with left small finger fasciectomy and pipjoint capsulotomy . Reviewed procedure, post-op expectations and risks including but not limited to bleeding, infection, injury to tendon/nerve/vessel, decreased hand function, stiffness, RSD, no change or worsening of symptoms, recurrence, incomplete release. I discussed the possible use of assistants and their participation in the case. Patient stated understanding and signed the consent form wishing to proceed. Review of Systems Review of Systems: All systems reviewed & are unremarkable except as noted in HPI and below PMFSH Past Medical History Medical History (Updated 08/31/25 @ 11:23 by Ken Sinclair DO) Afib CHF (congestive heart failure) EF 25-30% Dupuytren contracture of both hands Pacemaker Type 2 diabetes mellitus Hypertension Surgical History Surgical History History of cholecystectomy 2017 History of adenoidectomy Hx of tonsillectomy Family History Family History Father Family history unknown Mother Family history unknown Social History Social History Social History: Caffeine-diet soda Smoking packs per day: 3 Smoking cigarettes per day: 60.0 Years smoked: 30 Smoking pack-years: 90.00 Smoking status: Former smoker Tobacco type: cigarettes Second hand tobacco smoke exposure: No Smoking end date: 12/27/21 Alcohol intake: current Drinks per week: 2 Substance use: never Substance use type: does not use Living arrangements: with family Occupation/Education: occupation 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 .COMPLEX #180 tabs Instructions: Resume on 09/02/25. dapagliflozin propanediol 10 mg 10 mg PO DAILY #90 tabs 01/02/25 08/28/25 Rx tablet (Farxiga) furosemide 40 mg tablet See Rx Instructions .Route 01/02/25 08/28/25 Rx .COMPLEX #90 tabs metformin 500 mg tablet,extended See Rx Instructions .Route 01/02/25 08/28/25 Rx release 24 hr .COMPLEX #90 ea pen needle, diabetic 32 gauge x #100 ea 01/02/25 08/10/25 Rx lisinopril 20 mg tablet See Rx Instructions .Route 07/04/25 08/28/25 Rx .COMPLEX #90 tabs metoprolol succinate 50 mg See Rx Instructions .Route 07/04/25 08/28/25 Rx tablet,extended release 24 hr .COMPLEX #90 tabs atorvastatin 40 mg tablet See Rx Instructions .Route 07/24/25 08/28/25 Rx .COMPLEX #90 tabs blood-glucose sensor (FreeStyle #2 ea 08/08/25 08/10/25 Rx Brett 3 Plus Sensor device) hydrocodone 5 mg-acetaminophen 325 1 tablet PO Q6H PRN pain #8 tabs 09/01/25 Rx mg tablet Allergies Allergy/AdvReac Type Severity Reaction Status Date / Time No Known Allergies Allergy Verified 08/28/25 09:59 Exam Narrative: unchanged Assessment and Plan Assessment and plan (1) Dupuytren contracture of both hands: Code(s): M72.0 - Palmar fascial fibromatosis [Dupuytren] Status: Acute Assessment and Plan: cont as above
--- NOTE | 2025-09-01 06:41 | P.OP_ITS ---
Procedure Note - Detailed Date of Procedure 09/01/25 Pre-op Diagnosis Dupuytrens contracture -left Post-op Diagnosis Same Procedure Performed left small finger fasciectomy revision and pipjoint capsulotomy Surgeon Jacque Goodman MD Sex Worker Or Escort rodriguez caballero pa-c Anesthesia MAC Description of Procedure INFORMED CONSENT: The patient was seen and examined and marked in the pre-op area.? The patient signed the consent form. PROCEDURE IN DETAIL:The patient taken back to OR on the stretcher in supine position. Time out performed with anesthesia, surgeon and staff agreeing on patient's name site and surgery to be performed SCDs were placed on the lower extremities and inflated. A tourniquet was placed on {/left} upper extremity and antibiotics given IV After anesthesia administered sedation I injected {4}cc 1%lido i and 0.5% marcaine plain for digital block in the palm The?{left upper extremity}?was prepped and draped in sterile fashion the??{left upper extremity} was? exsanguinated with Esmarch bandage and tourniquet inflated to 250mmHg I proceeded with making a longitudinal incision over the left small finger proximal and middle phalanx through skin and dermis with 15 blade scalpel. This incision was carried obliquely across the MP joint flexion crease onto the palm. Littler scissors and 15 blade scalpels were used to elevate subdermal skin flaps. Littler scissors were used to spread through significant amount of scar tissue down to the flexor sheath. No singular Dupuytren's cord was identified and seemed to be and amalgamation of previous surgical scar tissue and Dupuytren's fascia. proximally in the palm I dissected down to the flexor tendons which were significantly encased in scar tissue. I circumferentially dissected around tendons proximally close to the original proximal zone of previous surgical intervention and proceeded with anterograde dissection and tenolysis until the FDS and FDP tendons were fully released. It was noted there was significant adhesion of the FDS tendons around the proximal phalanx and PIP joint while the FDP tendon was primarily stuck in the palm and over the proximal phalanx. I identified the radial and ulnar nerves and the vascular bundles appeared to be encased in scar tissue by the nerves and this was also protected throughout procedure though anatomy was significantly distorted from previous surgical scar tissue. Releasing in the fascia and scar tissue and tendons improved PIP joint extension slightly but there still appeared to be significant contracture of the joint. Fifteen blade scalpel was used to release the collateral ligaments and volar plate of small finger PIP joint. I was able to significantly improve extension after doing this with approximately 20 degree flexion remaining and this appeared to 2 flexor tendon tightness. It did not appear that any further improvement in extension was going to be achievable given limitations of patient's disease and previous surgery. I irrigated with normal saline and closed with 4-0 chromic. Z-plasties were constructed across flexion creases as needed. The tourniquet was let down noting the finger distal to the PIP joint was slightly dusky with delayed cap refill. This appeared to worsen with further extension of the joint so dressing was placed with out achieving the near full extension of the PIP joint at this time. A dressing of bacitracin, xeroform, 4x4, chanel, and an ulnar gutter splint was applied for patient safety, security, and comfort and secured with an ruth bandage after the tourniquet was let down noting the hand was warm and well perfused. The patient was then awaken from anesthesia and transferred to the recovery room in stable condition.? Complications - none EBL- 0cc Disposition - home in stable condition Rodriguez Caballero PA-C was essential for positioning, retraction, closure and dressing placement. GETACHEW Billing Surgery - Charge Forward: Surgery Billing ([id number],XS same for rodriguez clayton )
[2025-09-01 06:45] VITALS: BP 123/72; PULSE 61; RESP 16; TEMP 36.2; O2SAT 99
[2025-09-01] MEDS: ACETAMINOPHEN 500 MG TABLET 1000 MG PO (06:45)
[2025-09-01] MEDS: LACTATED RINGERS 1,000 ML 30 ML IV CONT ×2 (06:45→08:30)
--- NOTE | 2025-09-01 07:02 | WPDANESEPPF ---
Anes - Initial Pre Proc Eval Procedure: Operation Date: 09/01/25 07:30 Proposed Procedures p Left Small Finger Fasciectomy Proximal Interphalangeal Joint, Capsulotomy - Jacque Goodman MD Date/Time: 09/01/25 07:02 Surgeon: Jacque Goodman MD Pre Op Diagnosis: Dupuytrens contracture -left Patient Data Age: 60 Gender: M Height: 1.88 m Weight: 88 kg Allergies Allergy/AdvReac Type Severity Reaction Status Date / Time No Known Allergies Allergy Verified 08/28/25 09:59 Home Medications ?Medication ?Instructions ?Recorded ?Confirmed ?Type spironolactone 25 mg tablet 12.5 mg PO DAILY 07/08/23 08/28/25 History apixaban 5 mg tablet (Eliquis) See Rx Instructions .Route 01/02/25 08/28/25 Rx Held on 09/01/25. .COMPLEX #180 tabs Instructions: Resume on 09/02/25. dapagliflozin propanediol 10 mg 10 mg PO DAILY #90 tabs 01/02/25 08/28/25 Rx tablet (Farxiga) furosemide 40 mg tablet See Rx Instructions .Route 01/02/25 08/28/25 Rx .COMPLEX #90 tabs metformin 500 mg tablet,extended See Rx Instructions .Route 01/02/25 08/28/25 Rx release 24 hr .COMPLEX #90 ea pen needle, diabetic 32 gauge x #100 ea 01/02/25 08/10/25 Rx /32 lisinopril 20 mg tablet See Rx Instructions .Route 07/04/25 08/28/25 Rx .COMPLEX #90 tabs metoprolol succinate 50 mg See Rx Instructions .Route 07/04/25 08/28/25 Rx tablet,extended release 24 hr .COMPLEX #90 tabs atorvastatin 40 mg tablet See Rx Instructions .Route 07/24/25 08/28/25 Rx .COMPLEX #90 tabs blood-glucose sensor (FreeStyle #2 ea 08/08/25 08/10/25 Rx Brett 3 Plus Sensor device) hydrocodone 5 mg-acetaminophen 325 1 tablet PO Q6H PRN pain #8 tabs 09/01/25 Rx mg tablet Laboratory Tests 09/01/25 09/01/25 06:34 06:37 Sodium Pending Potassium Pending Chloride Pending Carbon Dioxide Pending Anion Gap Pending BUN Pending Creatinine Pending Estim Creat Clear Calc Pending Estimated GFR Pending Glucose Pending POC Capillary Glucose 141 H mg/dl (65-105) Calcium Pending Patient hx anesthesia problems: none Family hx anesthesia problems: none Results Review: All pre-operative results and documents have been reviewed as part of the pre-operative evaluation. [facility] Past Medical History Medical History (Updated 08/31/25 @ 11:23 by Ken Sinclair DO) Afib CHF (congestive heart failure) EF 25-30% Dupuytren contracture of both hands Pacemaker Type 2 diabetes mellitus Hypertension Surgical History Surgical History History of cholecystectomy 2017 History of adenoidectomy Hx of tonsillectomy Family History Family History Father Family history unknown Mother Family history unknown Social History Social History Social History: Caffeine-diet soda Smoking packs per day: 3 Smoking cigarettes per day: 60.0 Years smoked: 30 Smoking pack-years: 90.00 Smoking status: Former smoker Tobacco type: cigarettes Second hand tobacco smoke exposure: No Smoking end date: 12/27/21 Alcohol intake: current Drinks per week: 2 Substance use: never Substance use type: does not use Living arrangements: with family Occupation/Education: occupation 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 Informed Consent: The patient's anesthetic plan and its attendant risks and benefits were discussed with the patient/family/POA. Questions were solicited and answers provided to the satisfaction of the patient/family/POA.
[2025-09-01 07:20] LABS: Anion Gap 6 mmol/L (4-12); Blood Urea Nitrogen 24 mg/dL (9-20); Calcium 9.0 mg/dL (8.4-10.2); Carbon Dioxide 31 mmol/L (22-30); Chloride 100 mmol/L (98-107); Estimated CRCL calculation 75 ml/min; Estimated Glomerular Filt Rate > 60; Glucose 142 mg/dL (65-110); Potassium 4.0 mmol/L (3.4-5.0); Sodium 137 mmol/L (137-145)
[2025-09-01] MEDS: LIDOCAINE 1% LOCAL INJ 10 ML VIAL INFILTRATE (07:32)
[2025-09-01] MEDS: ceFAZolin 2 GM in SODIUM CHLORIDE 0.9% IV 50 ML 100 ML IVPB (07:32)
[2025-09-01] MEDS: BUPivacaine HCL 0.5% 10 ML AMP INFILTRATE (07:32)
[2025-09-01 08:30] VITALS: BP 116/68; PULSE 72; RESP 14; O2SAT 97
[2025-09-01 09:00] VITALS: BP 109/67; PULSE 63; O2SAT 98
[2025-09-01 09:30] VITALS: BP 121/71; PULSE 60; O2SAT 98
[2025-09-01 10:00] VITALS: BP 118/72; PULSE 64
== END 2025-09-01 10:15 | disposition home or self-care (01) ==
PROVIDERS: Anesthesiology; PCP Family Medicine; Visit Provider Plastic Surgery
PROC: (CPT 26045; principal; 2025-09-01 07:30)
DX: M72.0 Palmar fascial fibromatosis [Dupuytren] (principal); E11.9 Type 2 diabetes mellitus without complications; I11.0 Hypertensive heart disease with heart failure; I50.9 Heart failure, unspecified; I48.91 Unspecified atrial fibrillation; Z79.01 Long term (current) use of anticoagulants; Z79.84 Long term (current) use of oral hypoglycemic drugs; Z79.891 Long term (current) use of opiate analgesic; Z98.890 Other specified postprocedural states; Z90.49 Acquired absence of other specified parts of digestive tract; Z95.0 Presence of cardiac pacemaker; Z87.891 Personal history of nicotine dependence
CPT/HCPCS: 26123; 36415; 80048; 82948; J0690; A9270; J2003; J2250; J2590; J2704; J3010; J7120